=== PATIENT | female | born 1985 | race Caucasian/White ===

== ENCOUNTER 2016-05-16 01:31 | Inpatient (IN) | payer OTHER ==
[~2016-05-16] VITALS: Ht 165.1 cm; Wt 127.5 kg
[2016-05-16] MEDS ORDERED: Lactated Ringer's 1,000 ML IV PRN (08:37)
[2016-05-16] MEDS ORDERED: Sodium Chloride LOK Flush 10 mL Syringe IVFLUSH PRN (08:40)
[2016-05-16] MEDS ORDERED: Carboprost 250 mCg/mL Inj IM PRN ×2 (08:40→16:45)
[2016-05-16] MEDS ORDERED: Hemorrhage Kit, Post Partum XX ONE ×2 (08:40→16:45)
[2016-05-16] MEDS ORDERED: Methylergonovine 0.2 mg/mL Inj IM PRN ×2 (08:40→16:45)
[2016-05-16] MEDS ORDERED: Oxytocin 10 Unit/mL Inj IM PRN ×2 (08:40→16:45)
[2016-05-16] MEDS ORDERED: Oxytocin 30 Units/500 mL LR 30 UNITS in IV Premix 1 EACH IV PRN (08:40)
[2016-05-16] MEDS ORDERED: Penicillin G K Inj 5,000,000 UNITS in Dextrose 5% Minibag Plus 100 ML IV ONE (08:40)
[2016-05-16 08:48] LABS: Mean Corpuscular Hemoglobin 30.4 pg (27.0-35.0); Mean Corpuscular Volume 92.9 fL (81-100)
[2016-05-16] MEDS ORDERED: Misoprostol 25 mCg/0.25 Tablet ONE (09:05)
[2016-05-16] MEDS ORDERED: Misoprostol 25 mCg/0.25 Tablet VAGINAL ONE (09:15)
[2016-05-16] MEDS ORDERED: Penicillin G K Inj 3,000,000 UNITS in IV Premix 1 EACH IV SCH (16:30)
[2016-05-16] MEDS ORDERED: Lactated Ringer's 1,000 ML IV SCH (16:43)
[2016-05-16] MEDS ORDERED: LANOlin HPA 7 Gm Ointment TOPICAL PRN (16:45)
[2016-05-16] MEDS ORDERED: HYDROcodone-APAP 5-325 mg Tablet PO PRN (16:45)
[2016-05-16] MEDS ORDERED: Benzocaine (Dermoplast) 20% 60 Gm Spray TOPICAL PRN (16:45)
[2016-05-16] MEDS ORDERED: Witch Hazel-Glycerin Pads TOPICAL PRN (16:45)
--- NOTE | 2016-05-16 16:56 | PCM.OBVAG ---
Vaginal Delivery Date of Service May 16, 2016 Pre Operative Diagnosis Pre Operative Diagnosis Post-dates , elective labor induction Post Operative Diagnosis Post Operative Diagnosis Post dates , delivered Procedure Obstetical Procedure: Normal Spontaneous Vaginal Delivery, Other (Repair of periurethral vaginal tear with a single 3-O Vicryl suture, for hemostasis) Fundraising Assistant/Certified Emergency Vehicle Technician Provider and Certified Emergency Vehicle Technician: Kvng Walton MD Indication for Procedure Indication for Procedure Post-dates Induction: Induction of labor (with a single dose of vaginal misoprostol), AROM (initially with clear fluid, then with appearance of meconium; Pediatrics present at delivery), Progressed normally through labor, Other (PCN prophylaxis for GBS+ status -- 2 doses received) Findings Obstetrical Findings: [place] (Female), Weight (8 lbs, 2 oz), Presentation (Vertex), 1 minute (8), 5 minutes (9), Placenta (Intact /Normal), Perineal Laceration (perurethral, requiring a single interrupted suture for hemostasis) Analgesia/Medications Procedural Analgesia: None Blood Loss & Administration Estimated Blood Loss: 250 Blood Admin during procedure: No Post Procedure Plan Post Procedure Plan Routine care Post delivery Condition: Mom stable Kvng Walton MD May 16, 2016 16:56
[2016-05-17 06:57] LABS: Mean Corpuscular Hemoglobin 30.4 pg (27.0-35.0)
--- NOTE | 2016-05-17 17:55 | PCM.PNOBPP ---
Subjective Date of Service May 17, 2016 Post : Spontaneous Vaginal Delivery Visit History PPD#1 Subjective Patient without complaints. Lochia: Normal Pain Management: No or Minimal Pain Gastrointestinal: Good Appetite, No N/V Postop Activity: Ambulating Independently Labs Laboratory Tests 05/17/16 06:35: White Blood Count 16.6, Red Blood Count 3.69, Hemoglobin 11.2, Hematocrit 34.7, Mean Corpuscular Volume 94.0, Mean Corpuscular Hemoglobin 30.4, Mean Corpuscular Hemoglobin Concent 32.3, Red Cell Distribution Width 14.2, Platelet Count 228 Exam Vital Signs Vital Signs: VS reviewed, stable Exam Abdomen: Uterus is (at the umbilicus), Fundus firm, Abdomen soft, Abdomen non- tender, Abdomen non-distended Perineum: Laceration : Voiding without difficulty Extremities: No cords, No tenderness/swelling Lungs: Clear to Auscultation, Normal Air Movement Heart: Normal S1, Normal S2, No Murmurs/Rubs/Gallops General: Alert, Oriented X3, Cooperative, No Acute Distress OB Post Assessment/Plan Assessment PPD#1 -- doing well Problems: (1) Spontaneous vaginal delivery Status: Acute ICD Code: O80 (2) normal course Status: Acute ICD Code: Z39.2 (3) with 41 completed weeks gestation Status: Acute ICD Code: O48.0 Pain Evaluation: Adequate Pain Control Post plan: Anticipate discharge home today Kvng Walton MD May 17, 2016 17:55
--- NOTE | 2016-05-17 18:00 | PCM.DC.OB ---
Obstetrical Discharge Summary Date of Service May 17, 2016 Date of hospital admission May 16, 2016 at 07:21 Date of Discharge: May 17, 2016 Providers Admitting Physician: Kvng Walton MD Primary Care Physician: Kvng Walton MD Attending Physician: Kvng Walton MD Problems: (1) Spontaneous vaginal delivery Status: Acute ICD Code: O80 (2) normal course Status: Acute ICD Code: Z39.2 (3) with 41 completed weeks gestation Status: Acute ICD Code: O48.0 Brief History and Physical: Patient admitted for elective post-dates labor induction. Hospital Course: Obstetical Procedure: Normal Spontaneous Vaginal Delivery, Other (Repair of periurethral vaginal tear with a single 3-O Vicryl suture, for hemostasis) Professor Of Counseling/Canopy Stringer Provider and Canopy Stringer: Kvng Walton MD Indication for Procedure Indication for Procedure Post-dates Induction: Induction of labor (with a single dose of vaginal misoprostol), AROM (initially with clear fluid, then with appearance of meconium; Pediatrics present at delivery), Progressed normally through labor, Other (PCN prophylaxis for GBS+ status -- 2 doses received) Findings Obstetrical Findings: [place] (Female), Weight (8 lbs, 2 oz), Presentation (Vertex), 1 minute (8), 5 minutes (9), Placenta (Intact /Normal), Perineal Laceration (perurethral, requiring a single interrupted suture for hemostasis) Analgesia/Medications Procedural Analgesia: None Blood Loss & Administration Estimated Blood Loss: 250 Patient did well through her course, which was uneventful. She was discharged home on day 1. Disposition Home Follow-up plan 6 weeks Discharge Diet: No restrictions Discharge Activity-General: Pelvic Rest for 6 weeks Kvng Walton MD May 17, 2016 18:00
--- NOTE | 2016-05-17 18:01 | PCM.DIOB ---
Obstetrical Disch Instruction Date of Service: May 17, 2016 Dates of Hospitalization Date of Hospital Admission May 16, 2016 at 07:21 Providers Admitting Physician: Kvng Walton MD Primary Care Physician: Kvng Walton MD Attending Physician: Kvng Walton MD Discharge Diagnosis Problems: (1) Spontaneous vaginal delivery Status: Acute ICD Code: O80 (2) normal course Status: Acute ICD Code: Z39.2 (3) with 41 completed weeks gestation Status: Acute ICD Code: O48.0 Diet Discharge Diet: No restrictions Activity Discharge Activity-General: Pelvic Rest for 6 weeks Dressing and Incisional Care Hygiene: May shower Follow Up Plan Follow-up Provider (F9): Kvng Walton MD Follow-up appointment: Weeks (6) Call your provider for: Fever or Chills, Shortness of breath, Heavy vaginal bleeding, Epigastric pain, Excessive constipation, Vaginal discomfort, Red painful breasts Kvng Walton MD May 17, 2016 18:01
[2016-05-17 18:07] VITALS: BP 134/59; PULSE 82; RESP 16
== END 2016-05-17 18:40 | disposition home or self-care (01) | DRG 775 ==
LOC: FBC 07:21
PROVIDERS: ADMIT Family Medicine; ATTEND Family Medicine
PROC: 10E0XZZ Delivery of Products of Conception, External Approach (ICD-10-PCS; principal; 2016-05-16)
PROC: 3E0P7GC Introduction of Other Therapeutic Substance into Female Reproductive, Via Natural or Artificial Opening (ICD-10-PCS; 2016-05-16)
PROC: 0HQ9XZZ Repair Perineum Skin, External Approach (ICD-10-PCS; 2016-05-16)
DX: O70.0 First degree perineal laceration during delivery (principal); O48.0 Post-term pregnancy; O99.820 Streptococcus B carrier state complicating pregnancy; Z37.0 Single live birth; Z3A.41 41 weeks gestation of pregnancy